=== PATIENT | female | born 1955 | race Caucasian/White ===

== ENCOUNTER 2020-10-23 16:53 | Emergency (ER) | payer OTHER ==
[~2020-10-23] VITALS: Ht 157.5 cm; Wt 77.1 kg
[2020-10-23] MEDS ORDERED: PERCOCET 7.5-31 EAC1 PO (17:07)
[2020-10-23] MEDS ORDERED: SINEMET 10-1001 EAC1 PO (17:07)
[2020-10-23] MEDS ORDERED: SERTRALINE HCL100 MG PO (17:07)
[2020-10-23] MEDS ORDERED: NEURONTIN 300M300 M2 PO (17:07)
[2020-10-23] MEDS ORDERED: TRAZODONE HCL100 MG PO (17:08)
[2020-10-23 17:47] LABS: URINE BILIRUBIN NEGATIVE (Negative); URINE BLOOD 1+ (Negative); URINE CLARITY CLEAR; URINE COLOR YELLOW; URINE GLUCOSE-RANDOM NEGATIVE (Negative); URINE KETONES NEGATIVE (Negative); URINE LEUKOCYTES-REFLEX NEGATIVE (Negative); URINE NITRITE-REFLEX NEGATIVE (Negative); URINE PROTEIN NEGATIVE (Negative); URINE UROBILINOGEN 0.2 E.U./dl (0.2-1.0)
[2020-10-23 17:55] LABS: SQUAMOUS 0-3 Few /LPF (0-3)
[2020-10-23 17:56] LABS: URINE WBC-REFLEX None Seen /HPF (0-5)
[2020-10-23 17:57] LABS: BACTERIA-REFLEX 1-9 Few /HPF (None Seen); CASTS None Seen /LPF (None Seen); CRYSTALS None Seen /LPF (None Seen); URINE RBC 3-10 Few /HPF (0-2)
[2020-10-23 17:59] LABS: ABSOLUTE BASOPHILS 0.1 thou/uL (0.0-0.2); ABSOLUTE EOSINOPHILS 0.4 thou/uL (0.0-0.7); ABSOLUTE LYMPHOCYTES 3.5 thou/uL (0.8-5.3); ABSOLUTE MONOCYTES 0.9 thou/uL (0.0-1.2); ABSOLUTE NEUTROPHILS 5.6 thou/uL (1.6-8.1); BASOPHILS 0.7 %; EOSINOPHILS 3.4 %; HEMATOCRIT 35.1 % (37.0-47.0); HEMOGLOBIN 11.8 gm/dL (12.0-15.0); LYMPHOCYTES 33.6 %; MCH 29.2 pg (26.0-34.0); MCHC 33.8 g/dL (28.0-37.0); MCV 86.4 fL (80.0-100.0); MPV 7.9 fl. (7.2-11.1); NUCLEATED RBCS 0 /100WBC; PLATELET COUNT* 215 thou/uL (150-400); POLYS 53.3 %; RBC 4.06 mil/uL (4.20-5.00); RDW-CV 14.1 % (10.5-14.5); WBC 10.5 thou/uL (4.0-11.0)
[2020-10-23 18:08] LABS: CALCIUM 8.8 mg/dL (8.5-10.1); CREATININE 0.9 mg/dL (0.6-1.3)
[2020-10-23 18:19] LABS: ALBUMIN 3.3 g/dL (3.4-5.0); POTASSIUM 2.9 mmol/L (3.5-5.1); TOTAL BILIRUBIN 0.3 mg/dL (<0.1-1.0); TOTAL PROTEIN 6.7 g/dL (6.4-8.2)
[2020-10-23 18:57] VITALS: BP 142/56
--- NOTE | 2020-10-24 13:51 | EKG ---
[place] [address] ELECTROCARDIOGRAM REPORT Name: JOHN EVANS Room: [facility]#: [id number] Admission: 10/23/20 Attend Phys: Discharge: 10/23/20 Date of : 53 Date of Service: 10/23/20 1728 Report #: [id number] THIS REPORT FOR: //name// [facility] ED Test Date: 2020-10-23 Test Time: 17:28:01 Pat Name: JOHN EVANS Department: Room: Gender: F [employer]: : 1955 Requested By: Meghana Underwood Order Number: [id number] MD: Pierre Ash Measurements Intervals [place] Rate: 62 P: 2 HI: 174 QRS: 13 QRSD: 97 T: 0 QT: 409 QTc: 416 Interpretive Statements Sinus rhythm Low voltage, precordial leads Borderline T abnormalities, inferior leads No previous ECG available for comparison Electronically Signed On 10-24-2020 13:51:00 CDT by Pierre Ash [email or web address] <ELECTRONICALLY SIGNED> By: Pierre Ash MD, [facility] 10/24/20 1351 1728 1728 Pierre Ash MD, [facility] /EPI
== END 2020-10-23 19:01 | disposition home or self-care (01) ==
LOC: M.ERS 16:53
PROVIDERS: Nurse Practitioner Family
DX: S30.1XXA Contusion of abdominal wall, initial encounter (principal); R60.0 Localized edema; E87.6 Hypokalemia; Z90.49 Acquired absence of other specified parts of digestive tract; Z96.653 Presence of artificial knee joint, bilateral; Z90.89 Acquired absence of other organs; X58.XXXA Exposure to other specified factors, initial encounter; Y93.89 Activity, other specified; Y92.89 Other specified places as the place of occurrence of the external cause; Y99.8 Other external cause status